=== PATIENT | male | born 1985 | race Caucasian/White ===

== ENCOUNTER 2021-05-01 13:22 | Emergency (ER) | payer OTHER ==
[2021-05-01 13:33] VITALS: RESP 18; TEMP 97.7
[2021-05-01] MEDS ORDERED: HYDROmorphone 1 MG/ML 1 ML SYRINGE IVP STA ×3 (13:36→15:23)
--- NOTE | 2021-05-01 13:41 | ED ---
Lower Extremity Injury HPI - General Chief Complaint: Extremity Injury, Lower Stated Complaint: leg injury Time Seen by Provider: 05/01/21 13:23 Source: patient, EMS, RN notes reviewed Mode of arrival: EMS Limitations: no limitations - History of Present Illness Initial Comments: Patient is a 35-year-old male presenting to the emergency department via EMS after a leg injury at work. 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 He has an obvious deformity of his left lower leg. Patient denies any other injuries. Patient did receive a total of 200 g of fentanyl in the EMS prior to arrival. His pain is currently a 7/10. He is able to wiggle all his left toes. He is up-to-date with his vaccines. Patient has no further complaints. Upon arrival to the ER, his blood pressure is 233/127, rest of vitals normal. - Related Data Home Medications Medication Instructions Recorded Confirmed Desvenlafaxine Succinate [Pristiq] 100 mg PO HS 05/01/21 05/01/21 Testosterone Cypionate 200 mg IM Q14D 05/01/21 05/01/21 [Depo-Testosterone] Allergies Allergy/AdvReac Type Severity Reaction Status Date / Time Penicillins Allergy Unknown Verified 05/01/21 15:03 tree nut Allergy Anaphylaxis Verified 05/01/21 15:03 Review of Systems ROS Statement: Those systems with pertinent positive or pertinent negative responses have been documented in the HPI. ROS Other: All systems not noted in ROS Statement are negative. Past Medical History Past Medical History: No Reported History History of Any Multi-Drug Resistant Organisms: None Reported Past Surgical History: Appendectomy, Hernia Repair, Orthopedic Surgery Past Psychological History: PTSD Smoking Status: Current some day smoker Past Alcohol Use History: Occasional Past Drug Use History: Marijuana General Exam - General Exam Comments Initial Comments: GENERAL: Patient is well-developed and well-nourished. Patient is nontoxic and in moderate distress. HEAD: Atraumatic, normocephalic. EYES: Pupils equal round and reactive to light, extraocular movements intact, sclera anicteric, conjunctiva are normal. Eyelids were unremarkable. ENT: Oropharynx clear without exudates. Moist mucous membranes. NECK: Normal range of motion, supple without lymphadenopathy or JVD. LUNGS: Unlabored respirations. Breath sounds clear to auscultation bilaterally and equal. No wheezes rales or rhonchi. HEART: Regular rate and rhythm without murmurs, rubs or gallops. ABDOMEN: Soft, nontender, normoactive bowel sounds. No guarding, no rebound. No masses appreciated. MUSCULOSKELETAL: Patient has obvious deformity of the left tib-fib, he is able to wiggle his left toes, no pain of the left knee. He does have a good dorsal pedis and posterior tib pulses. No clubbing or cyanosis. NEUROLOGICAL: Patient is alert and oriented x 3. SKIN: Warm, Dry, normal turgor, no rashes or lesions noted. Limitations: no limitations Course Vital Signs 05/01/21 05/01/21 13:24 14:25 Temperature 97.7 F Pulse Rate 54 L 53 L Respiratory 18 18 Rate Blood Pressure 233/127 197/104 O2 Sat by Pulse 99 100 Oximetry - Reevaluation(s) Reevaluation #1: 05/01/21 14:45 1403: Called [facility] regarding patient 14:35: [facility] called back to decline the patient. 14:46: [facility] declined transfer. 14:51: [facility] [place] declined 05/01/21 15:10 [facility] called back to accept the patient. Patient is pend EMS. Procedures - Orthopedic Splinting/Casting Injury #1 Lower Extremity Injury Location: short leg Lower Extremity Immobilizer: posterior splint, stirrup splint, Tung wrap, synthetic pre-padded splint Medical Decision Making - Medical Decision Making Patient is a 35-year-old male here with a left lower leg injury after a tree fell at work today. X-rays reveal an acute transverse displaced fractures to the mid to distal diaphysis of the left tib and fib. Patient did receive a total of 200 g affect on the EMS prior to arrival. We have given him a total of 2 mg of Dilaudid. Patient will be transferred to [facility], Dr. Peng and Dr. Bar are accepting. He was placed in a posterior and stirrup splint. Case discussed with Dr. Dorsey. Disposition Clinical Impression: Closed fracture of distal end of left fibula and tibia Disposition: OTHER INSTITUTION NOT DEFINED Condition: Stable Referrals: Sangeeta Coughlin DO [Primary Care Provider] - 1-2 days Time of Disposition: 15:10 - Out of Hospital Transfer - Req. Specs Out of Hospital Transfer - Requested Specifics: Other [facility] ([facility])
--- NOTE | 2021-05-01 14:07 | XR ---
EXAMINATION TYPE: XR tibia fibula LT DATE OF EXAM: 05/01/2021 CLINICAL HISTORY: Obvious deformity with pain after injury. TECHNIQUE: Two views of the left leg are obtained. COMPARISON: None. FINDINGS: There is acute displaced transverse fracture through the mid to distal diaphysis of the ti grecai and fibula. . Approximately 1.5 cm osseous overlap along with approximately 5 to 6 mm anterior di splacement of distal fracture fragments is present. On last image there is near 2.0 cm medial displac ement of distal fracture fragments. Visualized left knee and ankle joints appear within normal limits . Overlying clothing material is present. IMPRESSION: There are acute transverse displaced fractures mid to distal diaphysis of the left tibia and fibula.
[2021-05-01 15:46] VITALS: BP 192/99; PULSE 56
== END 2021-05-01 15:33 | disposition other institution (70) ==
LOC: EC 13:22
DX: S82.302A Unspecified fracture of lower end of left tibia, initial encounter for closed fracture (principal); S82.832A Other fracture of upper and lower end of left fibula, initial encounter for closed fracture; F17.200 Nicotine dependence, unspecified, uncomplicated; Z88.0 Allergy status to penicillin; Z91.018 Allergy to other foods; Z20.822 Contact with and (suspected) exposure to COVID-19; W20.8XXA Other cause of strike by thrown, projected or falling object, initial encounter; Y93.H2 Activity, gardening and landscaping; Y92.89 Other specified places as the place of occurrence of the external cause; Y99.0 Civilian activity done for income or pay
CPT/HCPCS: 99285; 96374; 96376; 87635; 73590; J1170